=== PATIENT | female | born 1945 | race Caucasian/White ===

== ENCOUNTER 2017-04-11 16:46 | Observation (INO) | payer MEDICARE, BC ==
[2017-04-11 18:05] LABS: #Basophils 0.1 thou/uL (0.0-0.2); #Eosinphils 0.5 thou/uL (0.0-0.7); #Monocytes 0.7 thou/uL (0.11-0.59); #Neutrophils 6.8 thou/uL (1.40-6.50); %Basophils 1.1 % (0.0-1.0); %Eosinophils 4.4 % (0.0-10.0); %Lymphocytes 27.5 % (21.0-51.0); %Monocytes 5.9 % (0.0-10.0); Hematocrit 41.6 % (36.0-47.0); Red Blood Cell (RBC) Count 4.43 mill/uL (4.20-5.40); White Blood Cell (WBC) Count 11.1 thou/uL (4.8-10.8)
[2017-04-11 18:13] LABS: PTT 23.2 SEC (22.9-36.1); Prothrombin Time 11.9 SEC (12.0-14.7)
[2017-04-11 18:22] LABS: ALT (SGPT) 26 U/L (8-55); AST (SGOT) 17 U/L (5-34); Alkaline Phosphatase 111 U/L (40-150); Anion Gap 14 mmol/L (10-20); BUN (Urea Nitrogen) 14 mg/dL (9.8-20.1); Bilirubin, Total 0.5 mg/dL (0.2-1.2); CK (CPK) 49 U/L (29-168); Calc. Creatinine Clearance 0 mL/min (70-130); Calcium 9.3 mg/dL (7.8-10.44); Carbon Dioxide 29 mmol/L (23-31); Chloride 100 mmol/L (98-107); Estimated GFR-MDRD 49; Globulin 2.9 g/dL (2.4-3.5); Lipase 22 U/L (8-78); Protein, Total 6.9 g/dL (6.0-8.3)
--- NOTE | 2017-04-11 18:24 | CT ---
CT HEAD WITHOUT IV CONTRAST: 04/11/17 HISTORY: Syncope. COMPARISON: None available. FINDINGS: There is scalp soft tissue swelling seen within the left parietal region. No underlying calvarial fr acture is seen. A few lucencies are seen within the parietal bones bilaterally which may represent s mall hemangiomas measuring less than 1 cm. There is no evidence of a hemorrhage, acute infarction, mass effect or midline shift. There is mild chronic small vessel ischemic changes and cerebral volume loss. The ventricular system is normal in size, shape and position for the degree of sulcal atrophy. The visualized paranasal sinuses and mastoid air cells are clear. IMPRESSION: 1. No acute intracranial abnormalities demonstrated. 2. Mild chronic small vessel ischemic changes and cerebral volume loss. 3. Mild left parietal scalp hematoma without evidence of an underlying calvarial fracture. POS: [facility]
[2017-04-11 18:25] LABS: Troponin I 0.014 ng/mL (< 0.028)
--- NOTE | 2017-04-11 19:10 | RAD ---
THREE VIEWS LEFT SHOULDER: 04/11/17 HISTORY: Left shoulder injury. FINDINGS: There is tapering of the distal aspect of the clavicle which may be related to resorption secondary to prior injury. Coracoclavicular distance is within normal limits. There is no fracture or dislocat ion seen. Increased density at the left lung base probably related to overlying soft tissue density and epicardial fat pad. No other findings. IMPRESSION: 1. No acute osseous abnormality left shoulder. 2. Osseous resorption distal portion left clavicle. POS: [facility]
[2017-04-11 21:36] LABS: Troponin I 0.011 ng/mL (< 0.028)
[2017-04-11] MEDS ORDERED: ALPRAZolam 0.5 MG TAB PO PRN (22:28)
[2017-04-11 22:30] VITALS: BMI 37.0
[2017-04-11] MEDS ORDERED: CeleCOXIB 100 MG CAP PO SCH (23:00)
[2017-04-11] MEDS ORDERED: ALPRAZolam 0.5 MG TAB PO SCH (23:00)
[2017-04-11] MEDS ORDERED: traZODone HCl 50 MG TAB PO SCH (23:15)
[2017-04-11] MEDS ORDERED: tiZANidine HCl 4 MG TAB PO SCH (23:15)
[2017-04-12 00:17] LABS: Troponin I 0.019 ng/mL (< 0.028)
[2017-04-12] MEDS ORDERED: tiZANidine HCl 4 MG TAB PO SCH (09:00)
[2017-04-12] MEDS ORDERED: CeleCOXIB 100 MG CAP PO SCH (09:00)
--- NOTE | 2017-04-12 09:12 | ULT ---
CAROTID DOPPLER ULTRASOUND: Date: 04/12/17 HISTORY: Syncope. TECHNIQUE: Multiple longitudinal and transverse images of the carotid arteries are obtained using the multihert z linear array transducer. Real-time, color flow, and spectral waveform Doppler analysis was used to evaluate the carotid systems. FINDINGS: The right and left common carotid, internal carotid, and external carotid arteries are patent. No si gnificant evidence of carotid artery disease seen. The vertebral arteries are also patent. No evidence of increased flow velocities seen. IMPRESSION: 1. No significant evidence of common or internal carotid artery disease or stenosis. 2. Antegrade flow seen in both vertebral arteries. POS: [facility]
--- NOTE | 2017-04-12 11:19 | MRI ---
MRI OF THE BRAIN WITHOUT CONTRAST: COMPARISON: CT 04/11/17. HISTORY: Syncope. TECHNIQUE: Multiplanar, multisequence MR images were obtained of the brain without contrast. FINDINGS: There are a few scattered foci of high FLAIR signal in the subcortical and periventricular white mat ter, likely secondary to small-vessel ischemic disease. No restricted diffusion is seen to suggest an acute infarction. There is no evidence of hydrocephalus, intracranial hemorrhage, or extraaxial fluid collection. The expected flow voids are present. The corpus callosum, pituitary, and craniocervical junction are u nremarkable. The calvarium and overlying soft tissues are unremarkable. The visualized paranasal sinuses are wel l aerated. IMPRESSION: Small-vessel ischemic disease without acute intracranial abnormality. POS: [facility]
[2017-04-12 11:27] VITALS: BP 138/71; TEMP 97.6
--- NOTE | 2017-04-12 15:09 | HP ---
HISTORY OF PRESENT ILLNESS: The patient is a 71-year-old female who presented to the emergency room , complaining of a fall. She fell earlier in the morning at approximately 9:30 a.m. She reported s ome loss of consciousness that she believes, the maid did notice her fall. Maid reports she could n ot wake the patient up. Patient had a normal day, but she was having poor memory, not seem to remem jni going to the [email or web address] shop, having her hair spa done. She was brought to the emergency room. She was seen and evaluated in the emergency room. CT scan of the brain was normal. Chest x-ray, other x-ray findings were otherwise normal. She has been admitted for further evaluation and treatment. She has no prior history of cerebrovascular accident. She did not note any chest pain or shortness of breath associated with this. She is unsure of the exact mechanism of her fall whether she stumb led fell and hit her head where she passed out, hit her head before falling, but otherwise she does not have any exact recall of the incident, she is complaining of a headache as well as abrasion to h er left elbow. Otherwise, no other medical complaints are noted. There has been no nausea, vomitin g, or diarrhea reported. No fever has otherwise been noted. ALLERGIES: She is allergic to LYRICA, N-ACETYLTYROSINE, PENICILLIN, NSAIDS. CURRENT MEDICATIONS: Benicar, torsemide, Cymbalta, Neurontin, aspirin, Celebrex, tizanidine, trazod one, Crestor, alprazolam, vitamin D3, CoQ10, Krill Oil, Vistaril, tramadol, Tegretol. PAST MEDICAL HISTORY: Gastroesophageal reflux, hyperlipidemia, hypertension, fibromyalgia, osteoart hritis. PAST SURGICAL HISTORY: Positive for appendectomy, carpal tunnel surgery, cholecystectomy, hysterect mansi, multiple orthopedic surgeries, and back surgeries. SOCIAL/PERSONAL HISTORY: She is . She does not smoke nor does she drink alcohol. REVIEW OF SYSTEMS: Gastrointestinal: Negative. Genitourinary: Negative. Cardiovascular: Otherw ise, negative. Neurological: Positive as above. PHYSICAL EXAMINATION: VITAL SIGNS: Temperature is 97.6, BP 138/71, pulse 79, respirations 18, O2 sat 95% on room air. GENERAL: She is alert, active, in no acute distress. HEENT: Normocephalic. There is a slight bit of an abrasion noted to the right parietal lobe area a ppears to be a wound from hitting the table. There is no evidence of any other bruising or lesions otherwise noted. Sclerae and conjunctivae clear. Extraocular muscles are intact. NECK: Supple, full range of motion. No masses, no bruits. Thyroid is midline without thyromegaly or thyroid masses. LUNGS: Clear. HEART: Reveals a regular rate and rhythm without murmurs, gallops, or rubs. ABDOMEN: Soft, nontender, bowel sounds are active. No hepatosplenomegaly is noted. There is no ev idence of rebound or guarding. NEUROLOGIC: She is alert and oriented x3. She is able to move all extremities. She is able to fol low commands. LABORATORY AND DIAGNOSTIC DATA: Hemoglobin is 13.4, hematocrit 41.6, white blood count of 11.1. Ch emistry profile: Sodium within normal limits. Troponin within normal limits. CT of the brain is normal. Shoulder x-ray is normal. Carotid Doppler ultrasound is normal. Brain MRI showed mild isc hemic disease, but no evidence of any acute infarction otherwise noted. [employer] shows no ev idence of any arrhythmias. IMPRESSION: At time of admission, head injury with loss of consciousness, exact chain of even ts could not be determined. She is now back to her baseline. PLAN: I have discussed the findings with the patient and her daughter at the bedside. I feel like she can be discharged home on her home medicines. I do feel like we need to address her medicine si tuation with an towards decreasing frequency and intensity of some of these medications, but kristy hernandez can do that as an outpatient. She will be discharged home and follow up with me in a week or 10 d ays. She is to continue her home medications.
[2017-04-12] MEDS ORDERED: traZODone HCl 50 MG TAB PO SCH (21:00)
[2017-04-12] MEDS ORDERED: ALPRAZolam 0.5 MG TAB PO SCH (21:00)
== END 2017-04-12 13:32 | disposition home or self-care (01) ==
LOC: SCSER 16:46 → 2SE 20:22
PROVIDERS: ADMIT Family Medicine; ATTEND Family Medicine
DX: R55 Syncope and collapse (principal); I10 Essential (primary) hypertension; M19.90 Unspecified osteoarthritis, unspecified site; E78.5 Hyperlipidemia, unspecified; K21.9 Gastro-esophageal reflux disease without esophagitis; Z88.0 Allergy status to penicillin; Z88.6 Allergy status to analgesic agent; Z88.5 Allergy status to narcotic agent; Z88.8 Allergy status to other drugs, medicaments and biological substances; Z79.82 Long term (current) use of aspirin; Z79.899 Other long term (current) drug therapy; Z90.49 Acquired absence of other specified parts of digestive tract; Z90.710 Acquired absence of both cervix and uterus; Z98.890 Other specified postprocedural states
CPT/HCPCS: 70450; 70551; 73030; 80053; 82550; 82553; 83690; 84484 ×2; 85025; 85610; 85730; 93005; 93880; 99285; G0378; 36415

== ENCOUNTER 2018-10-03 13:47 | Outpatient (CLI) | payer MEDICARE, BC ==
--- NOTE | 2018-10-03 14:24 | MMO ---
Bilateral MAMMO Bilat Screen [facility]. CLINICAL HISTORY: Patient is 73 years old and is seen for screening. The patient has no family history of breast cancer. The patient has no personal history of cancer. The patient has a history of right Excisional Biopsy in 1990 - benign, left Excisional Biopsy in 1992 - benign and bilateral Breast reduction in 1998. VIEWS: The views performed were: bilateral craniocaudal with tomosynthesis and bilateral mediolateral oblique with tomosynthesis. FILMS COMPARED: The present examination has been compared to prior imaging studies performed at [facility] on 10/23/2003, 11/22/2004, 12/06/2005, 07/26/2006, 02/18/2007, 06/02/2008 and 09/02/2013, and at [facility] on 07/26/2001 and 10/07/2002. MAMMOGRAM FINDINGS: The breasts are heterogeneously dense, which could obscure a lesion on mammography. There are stable benign appearing calcifications seen in both breasts. There are no suspicious masses, suspicious calcifications, or new areas of architectural distortion. IMPRESSION: THERE IS NO MAMMOGRAPHIC EVIDENCE OF MALIGNANCY. A ROUTINE FOLLOW-UP MAMMOGRAM IN 1 YEAR IS RECOMMENDED. THE RESULTS OF THIS EXAM WERE SENT TO THE PATIENT. ACR BI-RADS Category 2 - Benign finding MAMMOGRAPHY NOTE: 1. A negative mammogram report should not delay a biopsy if a dominant of clinically suspicious mass is present. 2. Approximately 10% to 15% of breast cancers are not detected by mammography. 3. Adenosis and dense breasts may obscure an underlying neoplasm.
== END 2018-10-03 13:48 | disposition home or self-care (01) ==
LOC: BICMAMMO 13:47
PROVIDERS: ATTEND Family Medicine
DX: Z12.31 Encounter for screening mammogram for malignant neoplasm of breast (principal)
CPT/HCPCS: 77063; 77067

== ENCOUNTER 2021-03-16 13:31 | Outpatient (CLI) | payer MEDICARE, BC ==
[2021-03-16 15:13] LABS: Hemoglobin 13.5 g/dL (12.0-15.5); Mean Corpuscular HGB CONC 32.8 g/dL (32.0-36.0); Mean Corpuscular Hemoglobin 31.2 pg (27.0-33.0); Mean Corpuscular Volume 95.2 fl (81.6-98.3); Mean Platelet Volume 10.5 fl (7.4-10.4); Platelet Count 374 10x3/uL (150-450); RBC Distribution Width 12.2 % (11.5-14.5); Red Blood Cell (RBC) Count 4.33 10x6/uL (3.90-5.03); White Blood Cell (WBC) Count 10.3 10x3/uL (3.5-10.5)
[2021-03-16 15:27] LABS: Anion Gap 15 mmol/L (10-20); BUN (Urea Nitrogen) 18 mg/dL (9.8-20.1); Calc. Creatinine Clearance 0 mL/min (70-130); Carbon Dioxide 25 mmol/L (23-31); Chloride 103 mmol/L (98-107); Glucose 94 mg/dL (83-110); Potassium 3.9 mmol/L (3.5-5.1); Sodium 139 mmol/L (136-145)
[2021-03-17 11:58] LABS: SARS-CoV-2 PCR by NAA Not Detected (NotDetected)
== END 2021-03-16 13:32 | disposition home or self-care (01) ==
LOC: LABBT 13:31
PROVIDERS: ATTEND Neurological Surgery
DX: Z01.818 Encounter for other preprocedural examination (principal); M48.061 Spinal stenosis, lumbar region without neurogenic claudication; Z20.822 Contact with and (suspected) exposure to COVID-19
CPT/HCPCS: 80048; 85027; 93005; U0003; U0005; 93010

== ENCOUNTER 2021-03-21 07:42 | Day surgery (SDC) | payer MEDICARE, BC ==
[2021-03-18 10:57] VITALS: BMI 39.3
[2021-03-21] MEDS ORDERED: Midazolam HCl 2 mg/2 ml Vial ONE (08:32)
[2021-03-21] MEDS ORDERED: Thrombin 5000 UNITS/5 ML VIAL ONE (09:31)
[2021-03-21] MEDS ORDERED: Bupivacaine PF 0.5% 30 ML VIAL ONE (09:31)
[2021-03-21] MEDS ORDERED: EPINEPHrine 1 MG/ML AMP ONE (09:31)
[2021-03-21] MEDS ORDERED: Fentanyl 100 MCG/2 ML VIAL ONE (09:49)
[2021-03-21] MEDS ORDERED: HYDROmorphone 2 MG/ML VIAL ONE ×2 (09:50→11:35)
[2021-03-21] MEDS ORDERED: Glycopyrrolate 0.2 MG/ML 5 ML SYRINGE ONE (09:54)
[2021-03-21] MEDS ORDERED: Dexamethasone 20 MG/5 ML VIAL ONE (09:54)
[2021-03-21] MEDS ORDERED: PHENYLEPHRINE-NS 100 MCG/ML 10 ML SYRINGE ONE (09:54)
[2021-03-21] MEDS ORDERED: Rocuronium Bromide 10 MG/ML (10ML VIAL) ONE (09:54)
[2021-03-21] MEDS ORDERED: PROPOFOL 200 MG/20 ML VIAL ONE (09:54)
[2021-03-21] MEDS ORDERED: Ketorolac Tromethamine 30 MG/ML VIAL ONE (09:54)
== END 2021-03-21 13:58 | disposition home or self-care (01) ==
LOC: SDC 07:42
PROVIDERS: ATTEND Neurological Surgery
PROC: 01NB0ZZ Release Lumbar Nerve, Open Approach (ICD-10-PCS; principal; 2021-03-21)
DX: M48.061 Spinal stenosis, lumbar region without neurogenic claudication (principal); M54.16 Radiculopathy, lumbar region; E78.5 Hyperlipidemia, unspecified; G89.4 Chronic pain syndrome; G43.909 Migraine, unspecified, not intractable, without status migrainosus; I10 Essential (primary) hypertension; M19.90 Unspecified osteoarthritis, unspecified site; M81.0 Age-related osteoporosis without current pathological fracture; Z79.82 Long term (current) use of aspirin; Z79.899 Other long term (current) drug therapy; Z88.0 Allergy status to penicillin; Z88.5 Allergy status to narcotic agent; Z88.8 Allergy status to other drugs, medicaments and biological substances
CPT/HCPCS: 76000; J0171; J0690; J1100; J1170; J1885; J2250; J2704; J3010; S0020

== ENCOUNTER 2021-06-10 12:34 | Outpatient (CLI) | payer MEDICARE, BC | END 2021-06-10 12:35 | disposition home or self-care (01) | LOC: BICCT 12:34 | PROVIDERS: ATTEND Neurological Surgery | DX: M47.26 Other spondylosis with radiculopathy, lumbar region (principal); K76.9 Liver disease, unspecified; Z98.890 Other specified postprocedural states | CPT/HCPCS: 72131 ==

== ENCOUNTER 2021-07-11 13:43 | Outpatient (CLI) | payer MEDICARE, BC ==
[~2021-07-11 13:43] MED LIST: Magnevist 469MG/ML 20 ML VIAL ONE
== END 2021-07-11 13:44 | disposition home or self-care (01) ==
LOC: TBSIIMAG 13:43
PROVIDERS: ATTEND Neurological Surgery
DX: M51.16 Intervertebral disc disorders with radiculopathy, lumbar region (principal); M51.17 Intervertebral disc disorders with radiculopathy, lumbosacral region; M48.061 Spinal stenosis, lumbar region without neurogenic claudication; Z98.890 Other specified postprocedural states
CPT/HCPCS: 72158; 82565

== ENCOUNTER 2021-07-27 13:28 | Outpatient (CLI) | payer MEDICARE, BC | END 2021-07-27 13:29 | disposition home or self-care (01) | LOC: TBSIIMAG 13:28 | PROVIDERS: ATTEND Orthopaedic Surgery | DX: M16.12 Unilateral primary osteoarthritis, left hip (principal); M87.852 Other osteonecrosis, left femur; M87.851 Other osteonecrosis, right femur ==

== ENCOUNTER 2021-08-08 06:40 | Day surgery (SDC) | payer MEDICARE, BC ==
[2021-08-03 13:06] VITALS: BMI 38.0
[2021-08-08] MEDS ORDERED: Tranexamic Acid 1,000 MG/10 ML VIAL ONE (07:38)
[2021-08-08] MEDS ORDERED: Sodium Chloride 0.9% 100 ML ONE (07:39)
[2021-08-08] MEDS ORDERED: Dexamethasone 4 mg/ml Vial ONE (07:41)
[2021-08-08] MEDS ORDERED: Fentanyl 100 MCG/2 ML VIAL ONE ×2 (07:41→09:32)
[2021-08-08] MEDS ORDERED: Midazolam HCl 2 mg/2 ml Vial ONE (07:41)
[2021-08-08] MEDS ORDERED: Vancomycin 1.5 GRAM/300 ML BAG 1.5 GM in Premix Bag 1 BAG IVPB SCH (07:45)
[2021-08-08] MEDS ORDERED: Bupivacaine PF 0.5% 30 ML VIAL ONE (09:13)
[2021-08-08] MEDS ORDERED: HYDROmorphone 2 MG/ML VIAL SLOW IVP PRN (09:16)
[2021-08-08] MEDS ORDERED: Promethazine HCl 25 MG/ML VIAL IVPB PRN (09:16)
[2021-08-08] MEDS ORDERED: Promethazine HCl 25 MG/ML VIAL IM PRN (09:16)
[2021-08-08] MEDS ORDERED: Ondansetron HCl/PF 4 MG/2 ML Vial IVP PRN (09:16)
[2021-08-08] MEDS ORDERED: ceFAZolin 2 GM/Dextrose 50 ML IVPB ONE (09:29)
[2021-08-08] MEDS ORDERED: Glycopyrrolate 0.2 MG/ML 5 ML SYRINGE ONE (09:35)
[2021-08-08] MEDS ORDERED: ePHEDrine 50 MG/ML VIAL ONE (09:35)
[2021-08-08] MEDS ORDERED: PHENYLEPHRINE-NS 100 MCG/ML 10 ML SYRINGE ONE (09:35)
[2021-08-08] MEDS ORDERED: Ondansetron PF 4 MG/2 ML Vial ONE (09:35)
[2021-08-08] MEDS ORDERED: Bupivacaine HCl 0.5%/Epinephrine 1:200,000/PF 30 ml Vial ONE (09:35)
[2021-08-08] MEDS ORDERED: Dexamethasone 20 MG/5 ML VIAL ONE ×2 (09:35)
[2021-08-08] MEDS ORDERED: PROPOFOL 200 MG/20 ML VIAL ONE (09:35)
[2021-08-08] MEDS ORDERED: Ketorolac Tromethamine 30 MG/ML VIAL ONE (09:35)
[2021-08-08] MEDS ORDERED: Rocuronium Bromide 10 MG/ML (10ML VIAL) ONE (09:35)
[2021-08-08] MEDS ORDERED: Phenylephrine 10 MG/ML VIAL ONE (10:20)
== END 2021-08-08 14:40 ==
LOC: SDC 06:40
PROVIDERS: ATTEND Orthopaedic Surgery
PROC: 0SRB04A Replacement of Left Hip Joint with Ceramic on Polyethylene Synthetic Substitute, Uncemented, Open Approach (ICD-10-PCS; principal; 2021-08-08)
PROC: 3E0T3BZ Introduction of Anesthetic Agent into Peripheral Nerves and Plexi, Percutaneous Approach (ICD-10-PCS; 2021-08-08)
DX: M87.052 Idiopathic aseptic necrosis of left femur (principal); M16.12 Unilateral primary osteoarthritis, left hip; I10 Essential (primary) hypertension; E78.5 Hyperlipidemia, unspecified; M79.7 Fibromyalgia; I45.10 Unspecified right bundle-branch block; K21.9 Gastro-esophageal reflux disease without esophagitis; E78.00 Pure hypercholesterolemia, unspecified; M19.90 Unspecified osteoarthritis, unspecified site; G25.81 Restless legs syndrome; Z79.82 Long term (current) use of aspirin; Z79.899 Other long term (current) drug therapy; Z88.0 Allergy status to penicillin; Z88.5 Allergy status to narcotic agent; Z88.8 Allergy status to other drugs, medicaments and biological substances
CPT/HCPCS: C1776; J0690; J1100; J1885; J2250; J2370; J2405; J2704; J3010; J3370; J3490; S0020

== ENCOUNTER 2021-08-25 09:26 | Observation (INO) | payer MEDICARE, BC ==
[2021-08-25] MEDS ORDERED: Ketorolac Tromethamine 30 MG/ML VIAL ONE (09:56)
[2021-08-25] MEDS ORDERED: Orphenadrine Citrate 60 MG/2 ML VIAL SLOW IVP SCH (11:15)
[2021-08-25] MEDS ORDERED: Morphine 4 MG/ML VIAL ONE (11:17)
[2021-08-25] MEDS ORDERED: PROPOFOL 20 ML ONE (11:46)
[2021-08-25] MEDS ORDERED: Ondansetron ODT 4 MG TAB PO PRN (12:00)
[2021-08-25] MEDS ORDERED: Bisacodyl 5 MG TAB PO PRN (12:00)
[2021-08-25] MEDS ORDERED: HYDROcodone/Acetaminophen 7.5/325 mg Tablet PO PRN (12:00)
[2021-08-25] MEDS: HYDROcodone/Acetaminophen 7.5/325 mg Tablet PO PRN ×2 (16:50→20:59)
[2021-08-25 17:17] VITALS: BMI 38.7
[2021-08-25] MEDS ORDERED: ALPRAZolam 0.5 MG TAB PO PRN (17:50)
[2021-08-25] MEDS ORDERED: Lubiprostone 8 MCG CAP PO PRN (17:52)
[2021-08-25] MEDS ORDERED: Lidocaine 5% Patch TD PRN (18:03)
[2021-08-25] MEDS ORDERED: BUPRENORPHINE 10 MCG/HR TD SCH (18:15)
[2021-08-25] MEDS ORDERED: FLU VACC QS2021-22(65YR UP)/PF 240 MCG/0.7 ML SYRINGE IM ONE (20:00)
[2021-08-25] MEDS: tiZANidine HCl 4 MG TAB PO SCH (20:05)
[2021-08-25] MEDS: CeleCOXIB 100 MG CAP PO SCH (20:06)
[2021-08-25] MEDS: Famotidine 20 MG TAB PO SCH (20:06)
[2021-08-25] MEDS: traMADol HCl 50 MG TAB PO SCH (20:06)
[2021-08-25] MEDS ORDERED: Gabapentin 300 MG CAP PO SCH (21:00)
[2021-08-25] MEDS ORDERED: KRILL OIL PO SCH (21:00)
[2021-08-25] MEDS ORDERED: CARBAMAZEPINE XR 100 MG TAB PO SCH (21:00)
[2021-08-25] MEDS ORDERED: Cholecalciferol 1,000 UNITS (25 MCG) TAB PO SCH (21:00)
[2021-08-25] MEDS ORDERED: Pramipexole Di-HCl 0.125 MG TAB PO SCH (21:00)
[2021-08-25] MEDS ORDERED: Loratadine 10 MG TAB PO SCH (21:00)
[2021-08-25] MEDS ORDERED: Montelukast Sodium 10 mg Tablet PO SCH (21:00)
[2021-08-25] MEDS ORDERED: Rosuvastatin 20 MG TAB PO SCH (21:00)
[2021-08-25] MEDS ORDERED: traZODone HCl 50 MG TAB PO SCH (21:00)
[2021-08-26] MEDS: traMADol HCl 50 MG TAB PO SCH (04:57)
[2021-08-26] MEDS: HYDROcodone/Acetaminophen 7.5/325 mg Tablet PO PRN ×2 (05:28→09:30)
[2021-08-26 08:51] VITALS: BP 135/69; TEMP 98.2
[2021-08-26] MEDS: tiZANidine HCl 4 MG TAB PO SCH (08:55)
[2021-08-26] MEDS: Famotidine 20 MG TAB PO SCH (08:56)
[2021-08-26] MEDS: CeleCOXIB 100 MG CAP PO SCH (08:56)
[2021-08-26] MEDS ORDERED: Losartan 25 MG TAB PO SCH (09:00)
[2021-08-26] MEDS ORDERED: Enoxaparin Sodium 40 MG/0.4 ML SYRINGE SC SCH (09:00)
[2021-08-26] MEDS ORDERED: TRAMADOL ER 300 MG PO SCH (09:00)
[2021-08-26] MEDS ORDERED: Gabapentin 400 MG CAP PO SCH (09:00)
[2021-08-26] MEDS ORDERED: Aspirin Chewable 81 MG TAB PO SCH (09:00)
[2021-08-26] MEDS ORDERED: FLUoxetine HCl 20 MG CAP PO SCH (09:00)
[2021-08-26] MEDS ORDERED: Hydrochlorothiazide 25 MG TAB PO SCH (09:00)
== END 2021-08-26 11:40 | disposition home or self-care (01) ==
LOC: ERS 09:26 → SURG A 12:00
PROVIDERS: ADMIT Orthopaedic Surgery; ATTEND Surgery
PROC: 0SWBXJZ Revision of Synthetic Substitute in Left Hip Joint, External Approach (ICD-10-PCS; principal; 2021-08-25)
DX: T84.021A Dislocation of internal left hip prosthesis, initial encounter (principal); I10 Essential (primary) hypertension; E78.5 Hyperlipidemia, unspecified; K21.9 Gastro-esophageal reflux disease without esophagitis; G47.30 Sleep apnea, unspecified; M79.7 Fibromyalgia; M19.90 Unspecified osteoarthritis, unspecified site; G25.81 Restless legs syndrome; E78.00 Pure hypercholesterolemia, unspecified; Z79.82 Long term (current) use of aspirin; Z79.891 Long term (current) use of opiate analgesic; Z79.899 Other long term (current) drug therapy; Z88.0 Allergy status to penicillin; Z88.5 Allergy status to narcotic agent; Z88.8 Allergy status to other drugs, medicaments and biological substances; W18.39XA Other fall on same level, initial encounter
CPT/HCPCS: 27266; 72170; 73501; 73502; 96372; G0378 ×3; 96374; 96375; 99152; J1650; J1885; J2270; J2360; J2704

== ENCOUNTER 2021-09-09 14:14 | Inpatient (IN) | payer MEDICARE, BC ==
[2021-09-09] MEDS ORDERED: Fentanyl 100 MCG/2 ML VIAL ONE (15:40)
[2021-09-09] MEDS ORDERED: PROPOFOL 20 ML ONE (15:40)
[2021-09-09] MEDS ORDERED: Midazolam HCl 2 mg/2 ml Vial ONE (16:03)
[2021-09-09] MEDS ORDERED: Acetaminophen 325 MG TAB PO PRN (18:45)
[2021-09-09] MEDS ORDERED: Ondansetron ODT 4 MG TAB SL PRN (18:45)
[2021-09-09] MEDS ORDERED: Ondansetron PF 4 MG/2 ML Vial IVP PRN ×2 (18:45→18:54)
[2021-09-09] MEDS ORDERED: Promethazine HCl 25 MG/ML VIAL IM PRN (18:54)
[2021-09-09] MEDS: Ferrous Gluconate 324 MG TAB PO SCH (19:28)
[2021-09-09] MEDS: Senokot S 8.6-50 MG TAB PO SCH (19:29)
[2021-09-09] MEDS: HYDROcodone/Acetaminophen 10/325 mg Tablet PO PRN (19:51)
[2021-09-09 20:02] VITALS: BMI 41.1
[2021-09-09] MEDS: traMADol HCl 50 MG TAB PO PRN (22:32)
[2021-09-10] MEDS: Zolpidem Tartrate 5 MG TAB PO PRN (00:03)
[2021-09-10] MEDS: Acetaminophen 325 MG TAB PO PRN (00:03)
[2021-09-10] MEDS: HYDROcodone/Acetaminophen 10/325 mg Tablet PO PRN ×3 (02:27→14:49)
[2021-09-10] MEDS: traMADol HCl 50 MG TAB PO PRN ×2 (05:23→11:27)
[2021-09-10] MEDS ORDERED: Lubiprostone 8 MCG CAP PO PRN (08:20)
[2021-09-10] MEDS: Ferrous Gluconate 324 MG TAB PO SCH ×2 (08:26→20:42)
[2021-09-10] MEDS: Multivitamin W/ Minerals 1 TAB PO SCH (08:28)
[2021-09-10] MEDS ORDERED: BUTRANS 10 MCG TOP SCH (08:30)
[2021-09-10] MEDS ORDERED: FLU VACC QS2021-22(65YR UP)/PF 240 MCG/0.7 ML SYRINGE IM ONE (09:00)
[2021-09-10] MEDS ORDERED: TRAMADOL 300 MG PO SCH (09:00)
[2021-09-10] MEDS: CeleCOXIB 100 MG CAP PO SCH ×2 (09:24→20:40)
[2021-09-10] MEDS: Gabapentin 400 MG CAP PO SCH (09:25)
[2021-09-10] MEDS: Hydrochlorothiazide 25 MG TAB PO SCH (09:25)
[2021-09-10] MEDS: Losartan 25 MG TAB PO SCH (09:27)
[2021-09-10] MEDS: FLUoxetine HCl 20 MG CAP PO SCH (09:29)
[2021-09-10] MEDS: tiZANidine HCl 4 MG TAB PO SCH ×3 (09:30→20:44)
[2021-09-10] MEDS: Lidocaine 5% Patch TD SCH (09:33)
[2021-09-10] MEDS: Senokot S 8.6-50 MG TAB PO SCH ×2 (09:34→20:41)
[2021-09-10] MEDS: ALPRAZolam 0.5 MG TAB PO PRN (11:28)
[2021-09-10 15:32] LABS: SARS-CoV-2 PCR by NAA Not Detected (NotDetected)
[2021-09-10] MEDS: Transdermal Patch Removal TOP SCH (20:42)
[2021-09-10] MEDS: Gabapentin 300 MG CAP PO SCH (20:43)
[2021-09-10] MEDS: Cholecalciferol 1,000 UNITS (25 MCG) TAB PO SCH (20:43)
[2021-09-10] MEDS: Pramipexole Di-HCl 0.25 MG TAB PO SCH (20:44)
[2021-09-10] MEDS: Loratadine 10 MG TAB PO SCH (20:44)
[2021-09-10] MEDS: Montelukast Sodium 10 mg Tablet PO SCH (20:44)
[2021-09-10] MEDS: Rosuvastatin 20 MG TAB PO SCH (20:44)
[2021-09-10] MEDS ORDERED: CARBAMAZEPINE XR 100 MG TAB PO SCH (21:00)
[2021-09-10] MEDS ORDERED: Fish Oil 1,000 MG CAP PO SCH (21:00)
[2021-09-11] MEDS: Zolpidem Tartrate 5 MG TAB PO PRN ×2 (03:26→23:28)
[2021-09-11] MEDS: HYDROcodone/Acetaminophen 10/325 mg Tablet PO PRN ×3 (06:39→21:48)
[2021-09-11 07:33] LABS: Hemoglobin 12.4 g/dL (12.0-16.0); Mean Corpuscular HGB CONC 33.6 g/dL (32.0-36.0); Mean Corpuscular Hemoglobin 33.7 pg (27.0-31.0); Mean Platelet Volume 7.3 fL (7.4-10.4); Platelet Count 268 thou/uL (130-400); RBC Distribution Width 11.9 % (11.5-14.5); Red Blood Cell (RBC) Count 3.67 mill/uL (4.20-5.40); White Blood Cell (WBC) Count 7.4 thou/uL (4.8-10.8)
[2021-09-11 07:52] LABS: Anion Gap 12 mmol/L (10-20); BUN (Urea Nitrogen) 11 mg/dL (9.8-20.1); Calc. Creatinine Clearance 103 mL/min (70-130); Calcium 8.9 mg/dL (7.8-10.44); Carbon Dioxide 25 mmol/L (23-31); Chloride 106 mmol/L (98-107); Glucose 119 mg/dL (83-110); Potassium 3.7 mmol/L (3.5-5.1); Sodium 139 mmol/L (136-145)
[2021-09-11] MEDS: Gabapentin 400 MG CAP PO SCH (08:34)
[2021-09-11] MEDS: Losartan 25 MG TAB PO SCH (08:35)
[2021-09-11] MEDS: Hydrochlorothiazide 25 MG TAB PO SCH (08:35)
[2021-09-11] MEDS: Ferrous Gluconate 324 MG TAB PO SCH ×3 (08:36→20:55)
[2021-09-11] MEDS: Multivitamin W/ Minerals 1 TAB PO SCH (08:36)
[2021-09-11] MEDS: Lidocaine 5% Patch TD SCH (08:37)
[2021-09-11] MEDS: tiZANidine HCl 4 MG TAB PO SCH ×3 (08:37→20:55)
[2021-09-11] MEDS: FLUoxetine HCl 20 MG CAP PO SCH (08:37)
[2021-09-11] MEDS: Senokot S 8.6-50 MG TAB PO SCH ×2 (08:37→20:56)
[2021-09-11] MEDS: CeleCOXIB 100 MG CAP PO SCH (08:37)
[2021-09-11] MEDS: traMADol HCl 50 MG TAB PO PRN (11:33)
[2021-09-11] MEDS: ALPRAZolam 0.5 MG TAB PO PRN ×2 (11:38→21:48)
[2021-09-11] MEDS: Gabapentin 300 MG CAP PO SCH (20:53)
[2021-09-11] MEDS: Rosuvastatin 20 MG TAB PO SCH (20:53)
[2021-09-11] MEDS: Montelukast Sodium 10 mg Tablet PO SCH (20:55)
[2021-09-11] MEDS: Loratadine 10 MG TAB PO SCH (20:55)
[2021-09-11] MEDS: Cholecalciferol 1,000 UNITS (25 MCG) TAB PO SCH (20:55)
[2021-09-11] MEDS: Pramipexole Di-HCl 0.25 MG TAB PO SCH (20:56)
[2021-09-11] MEDS: Transdermal Patch Removal TOP SCH (21:47)
[2021-09-12] MEDS: Ferrous Gluconate 324 MG TAB PO SCH ×2 (07:39→20:24)
[2021-09-12] MEDS: Multivitamin W/ Minerals 1 TAB PO SCH (07:39)
[2021-09-12] MEDS: CeleCOXIB 100 MG CAP PO SCH ×2 (07:39→20:24)
[2021-09-12] MEDS: Lidocaine 5% Patch TD SCH (07:39)
[2021-09-12] MEDS: Losartan 25 MG TAB PO SCH (07:39)
[2021-09-12] MEDS: Hydrochlorothiazide 25 MG TAB PO SCH (07:40)
[2021-09-12] MEDS: Senokot S 8.6-50 MG TAB PO SCH ×2 (07:40→20:22)
[2021-09-12] MEDS: FLUoxetine HCl 20 MG CAP PO SCH (07:42)
[2021-09-12] MEDS: Gabapentin 400 MG CAP PO SCH (07:42)
[2021-09-12] MEDS: tiZANidine HCl 4 MG TAB PO SCH ×3 (07:43→20:25)
[2021-09-12] MEDS: HYDROcodone/Acetaminophen 10/325 mg Tablet PO PRN ×2 (08:01→20:25)
[2021-09-12] MEDS ORDERED: ceFAZolin 2 GM/Dextrose 50 ML 2 GM in Premix Bag 1 BAG IVPB SCH (09:30)
[2021-09-12] MEDS ORDERED: Vancomycin 1.5 GRAM/300 ML BAG 1.5 GM in Premix Bag 1 BAG IVPB SCH (09:30)
[2021-09-12] MEDS ORDERED: Fentanyl 100 MCG/2 ML VIAL ONE ×3 (11:34→15:27)
[2021-09-12] MEDS ORDERED: Midazolam HCl 2 mg/2 ml Vial ONE ×2 (11:37→14:54)
[2021-09-12] MEDS ORDERED: Promethazine HCl 25 MG SUPP PR PRN (12:00)
[2021-09-12] MEDS ORDERED: diphenhydrAMINE 25 MG CAP PO PRN (12:00)
[2021-09-12] MEDS ORDERED: Hydrocerin (Eucerin) Cream 120 gm Jar TOP PRN (12:00)
[2021-09-12] MEDS ORDERED: Naloxone HCl 0.4 mg/ml Vial IV PRN (12:00)
[2021-09-12] MEDS ORDERED: diphenhydrAMINE 50 MG/ML VIAL IVP PRN (12:00)
[2021-09-12] MEDS ORDERED: Fentanyl 5 mcg/Bup 0.075% Cadd 100 ML EPIDURAL SCH (12:00)
[2021-09-12] MEDS ORDERED: HYDROcodone/Acetaminophen 5/325 mg Tablet PO PRN (12:00)
[2021-09-12] MEDS ORDERED: Promethazine HCl 25 MG/ML VIAL IM PRN ×2 (12:00→14:36)
[2021-09-12] MEDS ORDERED: traMADol HCl 50 MG TAB PO PRN ×2 (12:00)
[2021-09-12] MEDS ORDERED: diphenhydrAMINE 50 MG/ML VIAL IM PRN (12:00)
[2021-09-12] MEDS ORDERED: Naloxone HCl 0.4 mg/ml Vial IVP PRN (12:00)
[2021-09-12] MEDS ORDERED: Bupivacaine 0.25% 10 ML VIAL EPIDURAL PRN (12:00)
[2021-09-12] MEDS ORDERED: Fentanyl 250 MCG/5 ML VIAL ONE (12:19)
[2021-09-12] MEDS ORDERED: Bupivacaine 0.25% HCL 30 ML VIAL ONE (12:27)
[2021-09-12] MEDS ORDERED: Lidocaine 1.5% w/Epi 1:200K 30 ML VIAL (Epid Use) ONE (12:28)
[2021-09-12] MEDS ORDERED: Rocuronium Bromide 10 MG/ML (10ML VIAL) ONE (12:28)
[2021-09-12] MEDS ORDERED: PHENYLEPHRINE-NS 100 MCG/ML 10 ML SYRINGE ONE (12:28)
[2021-09-12] MEDS ORDERED: PROPOFOL 200 MG/20 ML VIAL ONE (12:28)
[2021-09-12] MEDS ORDERED: Ondansetron PF 4 MG/2 ML Vial ONE (12:28)
[2021-09-12] MEDS ORDERED: Lidocaine 1% PF 5 ML VIAL ONE (12:28)
[2021-09-12] MEDS ORDERED: Dexamethasone 20 MG/5 ML VIAL ONE (12:28)
[2021-09-12] MEDS ORDERED: Glycopyrrolate 0.2 MG/ML 5 ML SYRINGE ONE (12:28)
[2021-09-12] MEDS ORDERED: Phenylephrine 10 MG/ML VIAL ONE (13:07)
[2021-09-12] MEDS: Ketorolac Tromethamine 30 MG/ML VIAL IVP SCH ×4 (14:10→23:26)
[2021-09-12] MEDS ORDERED: Promethazine HCl 25 MG/ML VIAL IVPB PRN (14:36)
[2021-09-12] MEDS ORDERED: Ondansetron HCl/PF 4 MG/2 ML Vial IVP PRN (14:36)
[2021-09-12] MEDS ORDERED: SUGAMMADEX SODIUM 200 MG/2 ML VIAL ONE (14:39)
[2021-09-12] MEDS ORDERED: Racepinephrine 2.25% 0.5 ML NEB ONE (14:44)
[2021-09-12] MEDS ORDERED: Sodium Chloride For Inhalation 0.9% 3 ML NEB ONE (14:44)
[2021-09-12] MEDS: Gabapentin 300 MG CAP PO SCH (20:22)
[2021-09-12] MEDS: Fish Oil 1,000 MG CAP PO SCH (20:22)
[2021-09-12] MEDS: Rosuvastatin 20 MG TAB PO SCH (20:23)
[2021-09-12] MEDS: Montelukast Sodium 10 mg Tablet PO SCH (20:24)
[2021-09-12] MEDS: Pramipexole Di-HCl 0.25 MG TAB PO SCH (20:24)
[2021-09-12] MEDS: Loratadine 10 MG TAB PO SCH (20:25)
[2021-09-12] MEDS: Cholecalciferol 1,000 UNITS (25 MCG) TAB PO SCH (20:25)
[2021-09-12] MEDS: Transdermal Patch Removal TOP SCH (20:27)
[2021-09-13] MEDS: Zolpidem Tartrate 5 MG TAB PO PRN (00:50)
[2021-09-13] MEDS: ALPRAZolam 0.5 MG TAB PO PRN ×2 (00:50→12:04)
[2021-09-13] MEDS: Ketorolac Tromethamine 30 MG/ML VIAL IVP SCH ×4 (05:14→23:52)
[2021-09-13] MEDS: HYDROcodone/Acetaminophen 10/325 mg Tablet PO PRN ×2 (05:20→12:04)
[2021-09-13] MEDS: Hydrochlorothiazide 25 MG TAB PO SCH (08:36)
[2021-09-13] MEDS: Multivitamin W/ Minerals 1 TAB PO SCH (08:36)
[2021-09-13] MEDS: CeleCOXIB 100 MG CAP PO SCH ×2 (08:36→21:26)
[2021-09-13] MEDS: Ferrous Gluconate 324 MG TAB PO SCH ×2 (08:37→21:26)
[2021-09-13] MEDS: Losartan 25 MG TAB PO SCH (08:37)
[2021-09-13] MEDS: Senokot S 8.6-50 MG TAB PO SCH ×2 (08:39→21:24)
[2021-09-13] MEDS: FLUoxetine HCl 20 MG CAP PO SCH (08:40)
[2021-09-13] MEDS: tiZANidine HCl 4 MG TAB PO SCH ×3 (08:40→23:49)
[2021-09-13] MEDS: Lidocaine 5% Patch TD SCH (08:41)
[2021-09-13] MEDS: Gabapentin 400 MG CAP PO SCH (08:54)
[2021-09-13] MEDS: HYDROcodone/Acetaminophen 5/325 mg Tablet PO PRN (17:42)
[2021-09-13] MEDS: Rosuvastatin 20 MG TAB PO SCH (21:25)
[2021-09-13] MEDS: Montelukast Sodium 10 mg Tablet PO SCH (21:26)
[2021-09-13] MEDS: Fish Oil 1,000 MG CAP PO SCH (21:26)
[2021-09-13] MEDS: Pramipexole Di-HCl 0.25 MG TAB PO SCH (21:26)
[2021-09-13] MEDS ORDERED: Fentanyl 5 mcg/Bup 0.075% Cadd 100 ML EPIDURAL SCH ×2 (21:26→22:15)
[2021-09-13] MEDS: Cholecalciferol 1,000 UNITS (25 MCG) TAB PO SCH (21:27)
[2021-09-13] MEDS: Loratadine 10 MG TAB PO SCH (21:27)
[2021-09-13] MEDS ORDERED: Sodium Chloride 0.9% 500 ML IV SCH ×2 (21:30→23:45)
[2021-09-13] MEDS: Gabapentin 300 MG CAP PO SCH (22:00)
[2021-09-13] MEDS: Transdermal Patch Removal TOP SCH (23:48)
[2021-09-14] MEDS: Acetaminophen 325 MG TAB PO PRN ×3 (02:45→21:05)
[2021-09-14] MEDS: HYDROcodone/Acetaminophen 5/325 mg Tablet PO PRN ×2 (04:03→09:28)
[2021-09-14] MEDS: Ondansetron PF 4 MG/2 ML Vial IVP PRN (06:14)
[2021-09-14] MEDS: Ketorolac Tromethamine 30 MG/ML VIAL IVP SCH (06:14)
[2021-09-14] MEDS: Lidocaine 5% Patch TD SCH (09:26)
[2021-09-14] MEDS: Losartan 25 MG TAB PO SCH (09:26)
[2021-09-14] MEDS: tiZANidine HCl 4 MG TAB PO SCH (09:26)
[2021-09-14] MEDS: Multivitamin W/ Minerals 1 TAB PO SCH (09:27)
[2021-09-14] MEDS: Gabapentin 400 MG CAP PO SCH (09:27)
[2021-09-14] MEDS: Ferrous Gluconate 324 MG TAB PO SCH ×2 (09:28→20:35)
[2021-09-14] MEDS ORDERED: ALPRAZolam 0.5 MG TAB PO PRN (09:28)
[2021-09-14] MEDS: FLUoxetine HCl 20 MG CAP PO SCH (09:28)
[2021-09-14] MEDS: CeleCOXIB 100 MG CAP PO SCH (09:28)
[2021-09-14] MEDS: Hydrochlorothiazide 25 MG TAB PO SCH (09:29)
[2021-09-14 13:09] LABS: Hemoglobin 9.5 g/dL (12.0-16.0)
[2021-09-14] MEDS: Senokot S 8.6-50 MG TAB PO SCH ×2 (15:02→20:35)
[2021-09-14] MEDS: Sodium Chloride 0.9% 1,000 ML IV SCH ×2 (15:31→23:48)
[2021-09-14 15:36] LABS: Bacteria/HPF None Seen HPF (None Seen); Bilirubin Negative (Negative); Blood, Urine 2+ (Negative); Clarity Clear (Clear); Glucose, Urine (Dipstick) Normal (Negative); Ketone, Urine Negative (Negative); Leukocyte Negative Leu/uL (Negative); Nitrite Negative (Negative); Protein, Urine (Dipstick) 20 mg/dL (Neg-Trace); RBC/HPF Greater than 50 HPF (0-3); Specific Gravity, Urine 1.023 (1.002-1.036); Squamous Epithelial 0-3 HPF (0-3); pH, Urine 5.5 (5.0-9.0)
[2021-09-14] MEDS: Rosuvastatin 20 MG TAB PO SCH (20:34)
[2021-09-14] MEDS: Montelukast Sodium 10 mg Tablet PO SCH (20:34)
[2021-09-14] MEDS: Fish Oil 1,000 MG CAP PO SCH (20:34)
[2021-09-14] MEDS: Cholecalciferol 1,000 UNITS (25 MCG) TAB PO SCH (20:34)
[2021-09-14] MEDS: Pramipexole Di-HCl 0.25 MG TAB PO SCH (20:34)
[2021-09-14] MEDS: Transdermal Patch Removal TOP SCH (20:35)
[2021-09-14] MEDS: Loratadine 10 MG TAB PO SCH (20:35)
[2021-09-15] MEDS: Acetaminophen 325 MG TAB PO PRN ×2 (01:05→05:00)
[2021-09-15 04:00] LABS: Anion Gap 11 mmol/L (10-20); BUN (Urea Nitrogen) 18 mg/dL (9.8-20.1); Calc. Creatinine Clearance 84 mL/min (70-130); Calcium 8.3 mg/dL (7.8-10.44); Carbon Dioxide 19 mmol/L (23-31); Chloride 105 mmol/L (98-107); Glucose 133 mg/dL (83-110); Potassium 3.4 mmol/L (3.5-5.1); Sodium 132 mmol/L (136-145)
[2021-09-15 05:05] LABS: Band 33 % (5-11); Eosinophils 3 % (0-10); Hemoglobin 10.2 g/dL (12.0-16.0); Lymphocytes 12 % (21-51); MDiff Complete? YES; Mean Corpuscular HGB CONC 32.8 g/dL (32.0-36.0); Mean Corpuscular Hemoglobin 32.8 pg (27.0-31.0); Mean Corpuscular Volume 99.9 fL (78.0-98.0); Mean Platelet Volume 7.6 fL (7.4-10.4); Monocytes 2 % (0-10); Neutrophil 50 % (42-75); Platelet Count 261 thou/uL (130-400); RBC Distribution Width 11.8 % (11.5-14.5); Red Blood Cell (RBC) Count 3.12 mill/uL (4.20-5.40); White Blood Cell (WBC) Count 20.5 thou/uL (4.8-10.8)
[2021-09-15] MEDS: HYDROcodone/Acetaminophen 5/325 mg Tablet PO PRN ×3 (07:49→16:56)
[2021-09-15] MEDS: Ferrous Gluconate 324 MG TAB PO SCH ×2 (07:53→19:42)
[2021-09-15] MEDS: Multivitamin W/ Minerals 1 TAB PO SCH (07:54)
[2021-09-15] MEDS: Senokot S 8.6-50 MG TAB PO SCH ×2 (07:54→19:44)
[2021-09-15] MEDS: FLUoxetine HCl 20 MG CAP PO SCH (07:54)
[2021-09-15] MEDS: Ondansetron PF 4 MG/2 ML Vial IVP PRN ×2 (08:47→16:55)
[2021-09-15] MEDS: Lidocaine 5% Patch TD SCH (08:53)
[2021-09-15] MEDS ORDERED: Simethicone Chewable 80 MG TAB PO PRN (09:12)
[2021-09-15] MEDS: Saccharomyces boulardii 250 MG CAP PO SCH ×3 (10:12→19:41)
[2021-09-15] MEDS: Sodium Chloride 0.9% 1,000 ML IV SCH ×3 (10:13→23:55)
[2021-09-15] MEDS: Fentanyl 100 MCG/2 ML VIAL SLOW IVP PRN ×2 (10:13→14:56)
[2021-09-15] MEDS: cefTRIAXone\\ROCEPHIN 2 GM in Sodium Chloride 0.9% 100 ML IVPB SCH (12:42)
[2021-09-15] MEDS: Fish Oil 1,000 MG CAP PO SCH (19:39)
[2021-09-15] MEDS: Cholecalciferol 1,000 UNITS (25 MCG) TAB PO SCH (19:39)
[2021-09-15] MEDS: Gabapentin 300 MG CAP PO SCH (19:40)
[2021-09-15] MEDS: Loratadine 10 MG TAB PO SCH (19:42)
[2021-09-15] MEDS: Montelukast Sodium 10 mg Tablet PO SCH (19:42)
[2021-09-15] MEDS: Rosuvastatin 20 MG TAB PO SCH (19:42)
[2021-09-15] MEDS: Pramipexole Di-HCl 0.25 MG TAB PO SCH (19:43)
[2021-09-15] MEDS: Transdermal Patch Removal TOP SCH (19:44)
[2021-09-16] MEDS: HYDROcodone/Acetaminophen 5/325 mg Tablet PO PRN ×2 (00:37→06:27)
[2021-09-16] MEDS: Sodium Chloride 0.9% 1,000 ML IV SCH ×2 (07:01→19:22)
[2021-09-16] MEDS: Multivitamin W/ Minerals 1 TAB PO SCH (07:53)
[2021-09-16] MEDS: Saccharomyces boulardii 250 MG CAP PO SCH ×2 (07:53→20:24)
[2021-09-16] MEDS: Lidocaine 5% Patch TD SCH (07:53)
[2021-09-16] MEDS: Losartan 25 MG TAB PO SCH (07:53)
[2021-09-16] MEDS: Gabapentin 400 MG CAP PO SCH (07:54)
[2021-09-16] MEDS: FLUoxetine HCl 20 MG CAP PO SCH (07:54)
[2021-09-16] MEDS: Ferrous Gluconate 324 MG TAB PO SCH ×2 (07:54→20:24)
[2021-09-16 08:08] LABS: #Eosinphils 0.5 thou/uL (0.0-0.7); #Lymphocytes 1.4 thou/uL (1.20-3.40); #Neutrophils 14.2 thou/uL (1.40-6.50); %Basophils 0.2 % (0.0-1.0); %Lymphocytes 8.4 % (21.0-51.0); %Monocytes 5.5 % (0.0-10.0); %Neutrophils 82.8 % (42.0-75.0); Hemoglobin 10.2 g/dL (12.0-16.0); Mean Corpuscular HGB CONC 33.2 g/dL (32.0-36.0); Mean Corpuscular Hemoglobin 32.9 pg (27.0-31.0); Mean Corpuscular Volume 99.2 fL (78.0-98.0); Mean Platelet Volume 7.1 fL (7.4-10.4); Platelet Count 330 thou/uL (130-400); RBC Distribution Width 11.8 % (11.5-14.5); Red Blood Cell (RBC) Count 3.11 mill/uL (4.20-5.40); White Blood Cell (WBC) Count 17.1 thou/uL (4.8-10.8)
[2021-09-16] MEDS: HYDROcodone/Acetaminophen 10/325 mg Tablet PO PRN ×3 (10:01→20:19)
[2021-09-16] MEDS: Senokot S 8.6-50 MG TAB PO SCH ×2 (10:04→20:23)
[2021-09-16] MEDS: Fentanyl 100 MCG/2 ML VIAL SLOW IVP PRN (13:01)
[2021-09-16] MEDS: cefTRIAXone\\ROCEPHIN 2 GM in Sodium Chloride 0.9% 100 ML IVPB SCH (13:02)
[2021-09-16] MEDS ORDERED: ceFAZolin 2 GM/Dextrose 50 ML 2 GM in Premix Bag 1 BAG IVPB SCH (14:00)
[2021-09-16] MEDS: Gabapentin 300 MG CAP PO SCH (20:20)
[2021-09-16] MEDS: Fish Oil 1,000 MG CAP PO SCH (20:23)
[2021-09-16] MEDS: Cholecalciferol 1,000 UNITS (25 MCG) TAB PO SCH (20:23)
[2021-09-16] MEDS: Rosuvastatin 20 MG TAB PO SCH (20:24)
[2021-09-16] MEDS: Loratadine 10 MG TAB PO SCH (20:24)
[2021-09-16] MEDS: Montelukast Sodium 10 mg Tablet PO SCH (20:25)
[2021-09-16] MEDS: Pramipexole Di-HCl 0.25 MG TAB PO SCH (20:25)
[2021-09-16] MEDS: Transdermal Patch Removal TOP SCH (22:17)
[2021-09-16] MEDS: Zolpidem Tartrate 5 MG TAB PO PRN (23:23)
[2021-09-16 23:50] LABS: SARS-CoV-2 PCR by NAA Not Detected (NotDetected)
[2021-09-17] MEDS: Sodium Chloride 0.9% 1,000 ML IV SCH ×2 (03:59→13:45)
[2021-09-17] MEDS: HYDROcodone/Acetaminophen 10/325 mg Tablet PO PRN ×3 (04:00→13:56)
[2021-09-17] MEDS: FLUoxetine HCl 20 MG CAP PO SCH (08:26)
[2021-09-17] MEDS: Gabapentin 400 MG CAP PO SCH (08:26)
[2021-09-17] MEDS: Ferrous Gluconate 324 MG TAB PO SCH (08:26)
[2021-09-17] MEDS: Lidocaine 5% Patch TD SCH (08:28)
[2021-09-17] MEDS: Losartan 25 MG TAB PO SCH (08:29)
[2021-09-17] MEDS: Saccharomyces boulardii 250 MG CAP PO SCH (08:30)
[2021-09-17] MEDS: Multivitamin W/ Minerals 1 TAB PO SCH (08:30)
[2021-09-17] MEDS: Senokot S 8.6-50 MG TAB PO SCH (08:31)
[2021-09-17] MEDS: Vancomycin 25 MG/ML Oral SOLN PO SCH ×2 (08:33→09:25)
[2021-09-17 17:42] VITALS: BP 138/76; TEMP 97.9
== END 2021-09-17 17:38 | DRG 466 ==
LOC: ERS 14:14 → SURG B 16:58 → CCU 09-14 13:58 → SURG B 09-15 16:46
PROVIDERS: ADMIT Orthopaedic Surgery; ATTEND Orthopaedic Surgery
PROC: 0QS7XZZ Reposition Left Upper Femur, External Approach (ICD-10-PCS; 2021-09-09)
PROC: 0SRE0JA Replacement of Left Hip Joint, Acetabular Surface with Synthetic Substitute, Uncemented, Open Approach (ICD-10-PCS; principal; 2021-09-12)
PROC: 0SPE0JZ Removal of Synthetic Substitute from Left Hip Joint, Acetabular Surface, Open Approach (ICD-10-PCS; 2021-09-12)
PROC: 0QC Lower Bones, Extirpation (ICD-10-PCS; 2021-09-12)
DX: T84.021A Dislocation of internal left hip prosthesis, initial encounter (principal); G93.41 Metabolic encephalopathy; M96.840 Postprocedural hematoma of a musculoskeletal structure following a musculoskeletal system procedure; M96.842 Postprocedural seroma of a musculoskeletal structure following a musculoskeletal system procedure; Y83.8 Other surgical procedures as the cause of abnormal reaction of the patient, or of later complication, without mention of misadventure at the time of the procedure; Z20.822 Contact with and (suspected) exposure to COVID-19; I10 Essential (primary) hypertension; M79.7 Fibromyalgia; I95.2 Hypotension due to drugs; T46.5X5A Adverse effect of other antihypertensive drugs, initial encounter; D64.9 Anemia, unspecified; F41.9 Anxiety disorder, unspecified; F32.A Depression, unspecified; G47.33 Obstructive sleep apnea (adult) (pediatric); G89.29 Other chronic pain; E78.5 Hyperlipidemia, unspecified; M19.90 Unspecified osteoarthritis, unspecified site; K21.9 Gastro-esophageal reflux disease without esophagitis; G25.81 Restless legs syndrome; T40.605A Adverse effect of unspecified narcotics, initial encounter; W19.XXXA Unspecified fall, initial encounter; Z99.89 Dependence on other enabling machines and devices; Z79.899 Other long term (current) drug therapy; Z88.0 Allergy status to penicillin; Z88.5 Allergy status to narcotic agent; Z88.8 Allergy status to other drugs, medicaments and biological substances; Z90.49 Acquired absence of other specified parts of digestive tract; Z90.710 Acquired absence of both cervix and uterus; Z98.890 Other specified postprocedural states
CPT/HCPCS: 27265; 36415; 70450; 72125; 72170; 80048; 81001; 82533; 84443; 85014; 85018; 85025; 85027; 85652; 86140; 86850; 86900; 86901; 87070; 87077; 87186; 87205; 87324; 87449; 96374; 96375; 99156; J0690; J0696; J1100; J1885; J2001; J2250; J2370; J2405; J2550; J2704; J3010; J3370; J3490; J7030; J7050; J7620; S0020; U0003; U0005

== ENCOUNTER 2021-11-08 15:25 | Emergency (ER) | payer MEDICARE, BC ==
[2021-11-08 17:35] LABS: #Basophils 0.1 thou/uL (0.0-0.2); #Eosinphils 0.5 thou/uL (0.0-0.7); #Lymphocytes 2.2 thou/uL (1.20-3.40); #Monocytes 0.6 thou/uL (0.11-0.59); #Neutrophils 8.6 thou/uL (1.40-6.50); %Basophils 0.5 % (0.0-1.0); %Eosinophils 3.8 % (0.0-10.0); %Lymphocytes 18.2 % (21.0-51.0); %Monocytes 5.3 % (0.0-10.0); %Neutrophils 72.2 % (42.0-75.0); Hemoglobin 12.9 g/dL (12.0-16.0); Mean Corpuscular HGB CONC 31.9 g/dL (32.0-36.0); Mean Corpuscular Hemoglobin 31.1 pg (27.0-31.0); Mean Corpuscular Volume 97.6 fL (78.0-98.0); Mean Platelet Volume 7.2 fL (7.4-10.4); Platelet Count 332 thou/uL (130-400); RBC Distribution Width 11.6 % (11.5-14.5); Red Blood Cell (RBC) Count 4.13 mill/uL (4.20-5.40); White Blood Cell (WBC) Count 11.9 thou/uL (4.8-10.8)
== END 2021-11-08 19:18 | disposition home or self-care (01) ==
LOC: ERS 15:25
DX: M25.552 Pain in left hip (principal); R53.1 Weakness; K21.9 Gastro-esophageal reflux disease without esophagitis; E78.5 Hyperlipidemia, unspecified; E78.00 Pure hypercholesterolemia, unspecified; I10 Essential (primary) hypertension; Z87.891 Personal history of nicotine dependence; Z79.899 Other long term (current) drug therapy
CPT/HCPCS: 36415; 72170; 85025; 85652; 86140

== ENCOUNTER 2022-10-29 04:25 | Emergency (ER) | payer MEDICARE, BC | END 2022-10-29 06:20 | disposition home or self-care (01) | LOC: ERS 04:25 | DX: M25.551 Pain in right hip (principal); E78.00 Pure hypercholesterolemia, unspecified; Z87.891 Personal history of nicotine dependence; Z79.82 Long term (current) use of aspirin ==

== ENCOUNTER 2023-05-14 09:35 | Outpatient (CLI) | payer MEDICARE, BC | END 2023-05-14 09:36 | disposition home or self-care (01) | LOC: BICMRI 09:35 | PROVIDERS: ATTEND Orthopaedic Surgery | DX: M25.551 Pain in right hip (principal); M87.051 Idiopathic aseptic necrosis of right femur; M25.451 Effusion, right hip | CPT/HCPCS: 72195 ==

== ENCOUNTER 2023-05-31 14:29 | Outpatient (CLI) | payer MEDICARE, BC ==
[2023-05-31 16:13] LABS: #Basophils 0.1 10x3/uL (0.0-0.2); #Eosinphils 0.4 10x3/uL (0.0-0.5); #Monocytes 0.8 10x3/uL (0.0-1.1); #Neutrophils 8.9 10x3/uL (1.5-8.4); %Eosinophils 3.5 % (0.0-6.0); %Lymphocytes 17.9 % (18.0-47.0); %Monocytes 6.5 % (0.0-10.0); %Neutrophils 70.8 % (40.0-75.0); Hematocrit 41.7 % (34.9-44.5); Hemoglobin 13.6 g/dL (12.0-15.5); Mean Corpuscular HGB CONC 32.6 g/dL (32.0-36.0); Mean Corpuscular Hemoglobin 29.4 pg (27.0-33.0); Mean Corpuscular Volume 90.1 fl (81.6-98.3); Mean Platelet Volume 10.1 fl (7.4-10.4); Platelet Count 325 10x3/uL (150-450); RBC Distribution Width 13.7 % (11.5-14.5); Red Blood Cell (RBC) Count 4.63 10x6/uL (3.90-5.03); White Blood Cell (WBC) Count 12.5 10x3/uL (3.5-10.5)
[2023-05-31 16:25] LABS: Anion Gap 17 mmol/L (10-20); BUN (Urea Nitrogen) 25 mg/dL (9.8-20.1); Calc. Creatinine Clearance 0 mL/min (70-130); Calcium 9.9 mg/dL (7.8-10.44); Carbon Dioxide 25 mmol/L (23-31); Chloride 102 mmol/L (98-107); Estimated GFR 43; Glucose 101 mg/dL (83-110); Potassium 3.8 mmol/L (3.5-5.1); Sodium 140 mmol/L (136-145)
[2023-05-31 16:33] LABS: INR-International Normal Ratio 0.9; Prothrombin Time 9.9 sec (9.5-12.1)
== END 2023-05-31 14:30 | disposition home or self-care (01) ==
LOC: LABBT 14:29
PROVIDERS: ATTEND Orthopaedic Surgery
DX: Z01.818 Encounter for other preprocedural examination (principal); M87.051 Idiopathic aseptic necrosis of right femur
CPT/HCPCS: 80048; 85025; 85610; 87081; 93005; 93010

== ENCOUNTER 2023-06-04 06:30 | Inpatient (IN) | payer MEDICARE, BC ==
[2023-05-31 15:17] VITALS: BMI 39.3
[2023-06-04] MEDS ORDERED: Tranexamic Acid 1,000 MG/10 ML VIAL ONE (06:53)
[2023-06-04] MEDS ORDERED: Vancomycin (BATCH) 1.5 GM/300 ML BAG ONE (06:54)
[2023-06-04] MEDS ORDERED: Sodium Chloride 0.9% 100 ML ONE ×2 (06:54→09:16)
[2023-06-04] MEDS ORDERED: fentaNYL 50 mcg/mL 1 mL Vial ONE ×5 (07:25→12:00)
[2023-06-04] MEDS ORDERED: Ropivacaine 0.5% HCl/PF (150 MG/30 ML VIAL) ONE (07:25)
[2023-06-04] MEDS ORDERED: Midazolam HCl 2 mg/2 ml Vial ONE ×2 (07:25→11:34)
[2023-06-04] MEDS ORDERED: Lidocaine 1% MPF 2 ML VIAL ONE (08:05)
[2023-06-04] MEDS ORDERED: BUPRENORPHINE 10 MCG TOP SCH (09:00)
[2023-06-04] MEDS ORDERED: CEFAZOLIN 2 GM VIAL ONE (09:16)
[2023-06-04] MEDS ORDERED: Bupivacaine PF 0.5% 30 ML VIAL ONE ×2 (09:16→09:29)
[2023-06-04] MEDS ORDERED: Rocuronium Bromide 10 MG/ML (10ML VIAL) ONE ×2 (09:20→09:40)
[2023-06-04] MEDS ORDERED: Dexamethasone 20 MG/5 ML VIAL ONE ×2 (09:20→09:40)
[2023-06-04] MEDS ORDERED: fentaNYL PF 100 MCG/2 ML SYRINGE ONE (09:20)
[2023-06-04] MEDS ORDERED: Ondansetron PF 4 MG/2 ML Vial ONE ×2 (09:20→09:40)
[2023-06-04] MEDS ORDERED: Lidocaine 1% PF 5 ML VIAL ONE ×2 (09:20→09:40)
[2023-06-04] MEDS ORDERED: PROPOFOL 20 ML ONE (09:20)
[2023-06-04] MEDS ORDERED: Ondansetron PF 4 MG/2 ML Vial IVP PRN (09:32)
[2023-06-04] MEDS ORDERED: Promethazine HCl 25 MG/ML VIAL IM PRN ×2 (09:32→11:26)
[2023-06-04] MEDS ORDERED: diphenhydrAMINE 25 MG CAP PO PRN (09:32)
[2023-06-04] MEDS ORDERED: HYDROcodone/Acetaminophen 10/325 mg Tablet PO PRN (09:32)
[2023-06-04] MEDS ORDERED: Zolpidem Tartrate 5 MG TAB PO PRN (09:32)
[2023-06-04] MEDS ORDERED: Acetaminophen 325 MG TAB PO PRN (09:32)
[2023-06-04] MEDS ORDERED: ALPRAZolam 0.5 MG TAB PO PRN (09:34)
[2023-06-04] MEDS ORDERED: Lubiprostone 8 MCG CAP PO PRN (09:34)
[2023-06-04] MEDS ORDERED: PROPOFOL 200 MG/20 ML VIAL ONE (09:40)
[2023-06-04] MEDS ORDERED: PHENYLEPHRINE-NS 100 MCG/ML 10 ML SYRINGE ONE ×2 (09:40→10:01)
[2023-06-04] MEDS ORDERED: BUPRENORPHINE 10 MCG TD SCH (09:45)
[2023-06-04] MEDS ORDERED: SUGAMMADEX SODIUM 200 MG/2 ML VIAL ONE (10:58)
[2023-06-04] MEDS ORDERED: HYDROmorphone 2 MG/ML VIAL SLOW IVP PRN (11:26)
[2023-06-04] MEDS ORDERED: Ondansetron HCl/PF 4 MG/2 ML Vial IVP PRN (11:26)
[2023-06-04] MEDS: fentaNYL 50 mcg/mL 1 mL Vial SLOW IVP PRN (13:19)
[2023-06-04] MEDS: CEFAZOLIN 2 GM in Sodium Chloride 0.9% 100 ML IVPB SCH (13:20)
[2023-06-04] MEDS: HYDROcodone/Acetaminophen 10/325 mg Tablet PO PRN (14:25)
[2023-06-04] MEDS: tiZANidine HCl 4 MG TAB PO SCH (14:25)
[2023-06-04] MEDS: Sodium Chloride 0.9% 1,000 ML IV SCH (18:49)
[2023-06-04] MEDS: Loratadine 10 MG TAB PO SCH (19:54)
[2023-06-04] MEDS: Ferrous Gluconate 324 MG TAB PO SCH (19:54)
[2023-06-04] MEDS: hydrOXYzine 25 MG TAB PO SCH (19:54)
[2023-06-04] MEDS: Senokot S 8.6-50 MG TAB PO SCH (19:54)
[2023-06-04] MEDS: Pramipexole Di-HCl 0.125 MG TAB PO SCH (19:54)
[2023-06-04] MEDS: Gabapentin 300 MG CAP PO SCH (19:55)
[2023-06-04] MEDS: Montelukast Sodium 10 mg Tablet PO SCH (19:55)
[2023-06-04] MEDS: Aspirin 81 mg Enteric Coated Tablet PO SCH (19:55)
[2023-06-04] MEDS: Rosuvastatin 20 MG TAB PO SCH (19:55)
[2023-06-04] MEDS ORDERED: Cetirizine HCl 10 MG TAB PO SCH (21:00)
[2023-06-04] MEDS ORDERED: CHOLECALCIFEROL 10000 UNIT PO SCH (21:00)
[2023-06-04] MEDS ORDERED: [UNRECOGNIZED DRUG - OTHER] PO SCH (21:00)
[2023-06-05 05:37] LABS: Hematocrit 35.4 % (36.0-47.0); Hemoglobin 11.8 g/dL (12.0-16.0); Mean Corpuscular HGB CONC 33.3 g/dL (32.0-36.0); Mean Corpuscular Hemoglobin 30.4 pg (27.0-31.0); Mean Corpuscular Volume 91.2 fl (78.0-98.0); Mean Platelet Volume 10.1 fL (7.4-10.4); Platelet Count 299 10x3/uL (130-400); RBC Distribution Width 13.3 % (11.5-14.5); Red Blood Cell (RBC) Count 3.88 mill/uL (4.20-5.40); White Blood Cell (WBC) Count 18.4 10x3/uL (4.8-10.8)
[2023-06-05] MEDS ORDERED: CAL MAG ZINC PO SCH (09:00)
[2023-06-05] MEDS ORDERED: Aspirin 81 mg Enteric Coated Tablet PO SCH (09:00)
[2023-06-05] MEDS: Cholecalciferol 1,000 UNITS (25 MCG) TAB PO SCH (09:55)
[2023-06-05] MEDS: Multivitamin W/ Minerals 1 TAB PO SCH (09:55)
[2023-06-05] MEDS: Cyanocobalamin (Vitamin B-12) 1,000 MCG TAB PO SCH (09:55)
[2023-06-05] MEDS: Hydrochlorothiazide 25 MG TAB PO SCH (09:56)
[2023-06-05] MEDS: Losartan 25 MG TAB PO SCH (09:56)
[2023-06-05] MEDS: Cephalexin 250 MG CAP PO SCH (13:10)
[2023-06-05 19:34] VITALS: BP 123/75; TEMP 97.7
== END 2023-06-05 21:25 | DRG 470 ==
LOC: SDC 06:30 → SURG A 09:32
PROVIDERS: ADMIT Orthopaedic Surgery; ATTEND Orthopaedic Surgery
PROC: 0SR90J9 Replacement of Right Hip Joint with Synthetic Substitute, Cemented, Open Approach (ICD-10-PCS; principal; 2023-06-04)
DX: M87.851 Other osteonecrosis, right femur (principal); I10 Essential (primary) hypertension; E78.5 Hyperlipidemia, unspecified; K21.9 Gastro-esophageal reflux disease without esophagitis; E78.00 Pure hypercholesterolemia, unspecified; G43.909 Migraine, unspecified, not intractable, without status migrainosus; M19.90 Unspecified osteoarthritis, unspecified site; M79.7 Fibromyalgia; G25.81 Restless legs syndrome; Z90.49 Acquired absence of other specified parts of digestive tract; Z90.710 Acquired absence of both cervix and uterus; Z98.890 Other specified postprocedural states
CPT/HCPCS: 36415; 85027; C1776; J0665; J1100; J2250; J2405; J2704; J2795; J3010; J3370; J3490

== ENCOUNTER 2023-12-07 15:00 | Outpatient (CLI) | payer MEDICARE, BC ==
[2023-12-07 16:19] LABS: Hematocrit 39.6 % (34.9-44.5); Hemoglobin 13.2 g/dL (12.0-15.5); Mean Corpuscular HGB CONC 33.3 g/dL (32.0-36.0); Mean Corpuscular Hemoglobin 30.8 pg (27.0-33.0); Mean Corpuscular Volume 92.3 fL (81.6-98.3); Mean Platelet Volume 10.3 fL (7.4-10.4); Platelet Count 289 10x3/uL (150-450); RBC Distribution Width 12.3 % (11.5-14.5); Red Blood Cell (RBC) Count 4.29 10x6/uL (3.90-5.03); White Blood Cell (WBC) Count 9.5 10x3/uL (3.5-10.5)
[2023-12-07 16:25] LABS: Anion Gap 16 mmol/L (10-20); BUN (Urea Nitrogen) 15 mg/dL (9.8-20.1); Calc. Creatinine Clearance 0 mL/min (70-130); Calcium 9.7 mg/dL (7.8-10.44); Carbon Dioxide 26 mmol/L (23-31); Chloride 101 mmol/L (98-107); Estimated GFR 63; Glucose 208 mg/dL (83-110); Potassium 3.6 mmol/L (3.5-5.1); Sodium 139 mmol/L (136-145)
== END 2023-12-07 15:01 | disposition home or self-care (01) ==
LOC: LABBT 15:00
PROVIDERS: ATTEND Neurological Surgery
DX: Z01.818 Encounter for other preprocedural examination (principal); M43.16 Spondylolisthesis, lumbar region; M54.16 Radiculopathy, lumbar region
CPT/HCPCS: 80048; 85027; 93005; 93010

== ENCOUNTER 2023-12-14 06:41 | Day surgery (SDC) | payer MEDICARE, BC ==
[2023-12-07 15:14] VITALS: BMI 39.3
[2023-12-14] MEDS ORDERED: Famotidine/PF 20 mg/2ml Vial ONE (06:52)
[2023-12-14] MEDS ORDERED: Bupivacaine PF 0.5% 30 ML VIAL ONE (08:19)
[2023-12-14] MEDS ORDERED: Thrombin 5000 UNITS/5 ML VIAL ONE (08:19)
[2023-12-14] MEDS ORDERED: EPINEPHrine 1 MG/ML VIAL ONE (08:19)
[2023-12-14] MEDS ORDERED: CEFAZOLIN 2 GM VIAL ONE ×2 (08:31→13:16)
[2023-12-14] MEDS ORDERED: Sodium Chloride 0.9% 100 ML ONE ×2 (08:31→13:16)
[2023-12-14] MEDS ORDERED: Lidocaine 2% PF 5 ML VIAL ONE (08:32)
[2023-12-14] MEDS ORDERED: PROPOFOL 20 ML ONE (08:32)
[2023-12-14] MEDS ORDERED: fentaNYL 50 mcg/mL 1 mL Vial ONE ×2 (08:32→11:22)
[2023-12-14] MEDS ORDERED: Dexamethasone 4 mg/ml Vial ONE (09:11)
[2023-12-14] MEDS ORDERED: SUGAMMADEX SODIUM 200 MG/2 ML VIAL ONE (09:17)
[2023-12-14] MEDS ORDERED: Ketorolac Tromethamine 30 MG (1 mL) VIAL ONE (09:17)
[2023-12-14] MEDS ORDERED: Ondansetron PF 4 MG/2 ML Vial ONE (09:17)
[2023-12-14] MEDS ORDERED: PHENYLEPHRINE-NS 100 MCG/ML 10 ML SYRINGE ONE (10:00)
[2023-12-14] MEDS ORDERED: Dexmedetomidine 200 MCG/2 ML VIAL ONE (11:15)
[2023-12-14] MEDS ORDERED: HYDROmorphone 0.5 MG/0.5 ML SYRINGE ONE (11:35)
[2023-12-14] MEDS ORDERED: fentaNYL PF 100 MCG/2 ML SYRINGE ONE ×2 (11:53→12:16)
[2023-12-14] MEDS ORDERED: Cyclobenzaprine 10 MG TAB ONE (13:15)
[2023-12-14] MEDS ORDERED: HYDROcodone/Acetaminophen 5/325 mg Tablet ONE (13:16)
[2023-12-14] MEDS ORDERED: HYDROcodone/Acetaminophen 10/325 mg Tablet ONE (17:12)
== END 2023-12-14 19:31 ==
LOC: SDC 06:41
PROVIDERS: ATTEND Neurological Surgery
PROC: 0SG007J Fusion of Lumbar Vertebral Joint with Autologous Tissue Substitute, Posterior Approach, Anterior Column, Open Approach (ICD-10-PCS; principal; 2023-12-14)
DX: M48.061 Spinal stenosis, lumbar region without neurogenic claudication (principal); M43.16 Spondylolisthesis, lumbar region; M54.16 Radiculopathy, lumbar region; I10 Essential (primary) hypertension; E78.5 Hyperlipidemia, unspecified; Z88.0 Allergy status to penicillin; Z88.5 Allergy status to narcotic agent; Z88.8 Allergy status to other drugs, medicaments and biological substances; Z96.643 Presence of artificial hip joint, bilateral; Z79.899 Other long term (current) drug therapy
CPT/HCPCS: 20931; 20936; 22612; 22840; C1713 ×3; C1889 ×2; J0171; J0665; J1100; J1170; J1885; J2001; J2405; J2704; J3010; J3490; S0028

== ENCOUNTER 2024-03-19 14:27 | Outpatient (CLI) | payer MEDICARE, BC | END 2024-03-19 14:28 | disposition home or self-care (01) | LOC: BICMAMMO 14:27 | DX: Z12.31 Encounter for screening mammogram for malignant neoplasm of breast (principal); Z78.0 Asymptomatic menopausal state; M81.0 Age-related osteoporosis without current pathological fracture; Z91.89 Other specified personal risk factors, not elsewhere classified; Z98.890 Other specified postprocedural states | CPT/HCPCS: 77063; 77067; 77080 ==